=== PATIENT | female | born 1940 | race Caucasian/White ===

== ENCOUNTER → 2018-06-23 | Outpatient (CLI) | payer OTHER ==
[~2018-06-23] VITALS: Ht 162.6 cm; Wt 57.2 kg
[~2018-06-23] MED LIST: ALDACTONE25 MG PO; BIOTIN1 M1 PO; CHLORPHENIRAMINE; FISH OIL 1,001000 M2 PO; GLUCOSAMINE1000 MG PO; LASIX 20 MG TAB20 MG PO; LEVOTHYROXIN0.025 MG PO; ONE-A-DAY WOMENS PO; POTASSIUM99 M1 PO; SENOKOT-S1 TA2 GT; TUMS PO; TYLENOL325 MG PO; VALTREX1000 MG PO; VITAMIN D1000 UNI1 PO
--- NOTE | ~2018-06-23 | HPC ---
[facility] [place] [address] PAIN MANAGEMENT CONSULTATION Name: BASILIO DONG Room #: REG [facility].#: [id number] Admission: 06/23/18 Attend Phys: Aime Lloyd MD Discharge: Date of : 42 Report #: [id number] THIS REPORT FOR: //name// CC: Tracey Parham MD DATE OF SERVICE: 06/23/2018 CHIEF COMPLAINT: Cervicalgia. HISTORY OF PRESENT ILLNESS: The patient is here today with new complaints. She has pain in her neck. She has difficulty holding her head up. 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 I reviewed the plain films from Dr. Markham's office. He has recommended conservative therapy and she is undergoing physical therapy. She came today to get my thoughts and opinions. We discussed the changes that she has and I explained them in some detail on how they will affect her posture as she continues to hold her neck in a position of most comfort. Physical therapy may help in helping her with some alignment that may allow her to hold her head more upright, but it is likely based upon the plain film x-rays that she will have some restriction in neck extension. She has some mild disk difficulty with rotational movements as well, consistent with osteoarthritis of the higher cervical facet joints. Overall, the intensity of the pain is not severe. She scores it as a 1. She is here today mostly just to get a second opinion and explanation of her condition. I reviewed her PQRS. 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 She is fit and lean with a BMI of 21.6. SOCIAL HISTORY: She denies use of tobacco or alcohol. She does not take opioid medication nor does she desire it. She is under treatment for hypertension. MEDICATIONS: All medications are reviewed and reconciled from the electronic medical record. They are provided for her by Dr. Shai Parham, her primary care physician. She complained of lightheadedness. This is not exactly a dizziness, but at times when she is walking, she feels unsteady as though she may fall. She has been using a chair for balance at home, but rarely uses a walking device. We discussed the possibility of a cane. Almost everywhere she goes, she goes with her sister and her sister help support each other. She is a bit concerned that if she falls, she may pull her sister to the ground! She has no evidence of [address] [address] PAIN MANAGEMENT CONSULTATION Name: BASILIO DONG Room #: REG [facility]#: [id number] Admission: 06/23/18 Attend Phys: Aime Lloyd MD Discharge: Date of : 42 Report #: [id number] orthostasis. We have reviewed her medications and I see no obvious source there for this lightheadedness. PHYSICAL EXAMINATION: GENERAL: She is pleasant, alert and oriented. VITAL SIGNS: Height of 5 feet, 4. Weight of 126 pounds, BMI 21.6. Blood pressure 148/77, heart rate 89, respirations 16. EXTREMITIES: She moves easily from sitting to standing position. She ambulates without difficulty with short measured steps. She does look as though she may be a bit unsteady and I would consider her a fall risk. Examination of the neck reveals pain and neck extension where there is some restrictions. She also holds her chin forward and some extension, also a likely position of comfort. Rotational movements are limited by about 25%. Lateral tilt reproduced also in a similar degree 25-50%. Localized tenderness throughout the neck. IMPRESSION: Cervicalgia related to spondylosis. RECOMMENDATIONS: Long talk today about the use of Tylenol, nonsteroidal anti-inflammatory drugs, risks and benefits. She might be a candidate for some injections at some point in time, but I think that would be the most aggressive thing I would do. Follow up as needed. By: [id number] Aime Lloyd MD /nt
[2018-06-23 14:42] VITALS: BP 148/77
== END ==
LOC: PAIN 07:40
DX: M54.2 Cervicalgia (principal); M47.892 Other spondylosis, cervical region

== ENCOUNTER → 2018-09-19 | Outpatient (CLI) | payer OTHER | LOC: ULTRA 10:25 | DX: I83.92 Asymptomatic varicose veins of left lower extremity (principal) ==

== ENCOUNTER 2019-09-13 15:27 | Emergency (ER) | payer OTHER ==
[~2019-09-13] VITALS: Ht 160 cm; Wt 54.4 kg
[~2019-09-13 15:27] MED LIST changes: -LEVOTHYROXIN0.025 MG PO; +SYNTHROID50 MCG PO
[2019-09-13] MEDS ORDERED: PEPCID AC20 MG PO (16:15)
[2019-09-13] MEDS ORDERED: NORVASC 2.5 MG2.5 M1 PO (16:16)
[2019-09-13] MEDS ORDERED: NORCO 5-325 TA1 EAC1 PO (17:38)
[2019-09-13] MEDS ORDERED: VOLTAREN GEL 1100 G1 TOP (17:38)
[2019-09-13 17:59] VITALS: BP 171/97
== END 2019-09-13 17:59 | disposition home or self-care (01) ==
LOC: ER 15:27
DX: M17.12 Unilateral primary osteoarthritis, left knee (principal); Z90.710 Acquired absence of both cervix and uterus; Z88.0 Allergy status to penicillin; Z88.1 Allergy status to other antibiotic agents; Z88.2 Allergy status to sulfonamides; Z88.8 Allergy status to other drugs, medicaments and biological substances

== ENCOUNTER → 2020-10-21 | Outpatient (CLI) | payer OTHER ==
[~2020-10-21] MED LIST changes: +NORCO 5-325 TA1 EAC1 PO; +NORVASC 2.5 MG2.5 M1 PO; +PEPCID AC20 MG PO; +VOLTAREN GEL 1100 G1 TOP
== END ==
LOC: RAD 15:25
PROVIDERS: ATTEND Internal Medicine
DX: I10 Essential (primary) hypertension (principal); M25.78 Osteophyte, vertebrae

== ENCOUNTER → 2020-10-21 | Outpatient (CLI) | payer OTHER | LOC: SJCVCIMAG 13:19 → SJCVC 13:19 | PROVIDERS: ATTEND Internal Medicine | DX: I08.3 Combined rheumatic disorders of mitral, aortic and tricuspid valves (principal); I27.20 Pulmonary hypertension, unspecified; I11.9 Hypertensive heart disease without heart failure; E78.5 Hyperlipidemia, unspecified; E03.9 Hypothyroidism, unspecified; M81.0 Age-related osteoporosis without current pathological fracture; Z88.8 Allergy status to other drugs, medicaments and biological substances; Z98.890 Other specified postprocedural states; Z86.79 Personal history of other diseases of the circulatory system; Z82.49 Family history of ischemic heart disease and other diseases of the circulatory system ==

== ENCOUNTER → 2021-07-19 | Outpatient (CLI) | payer OTHER | LOC: RAD 15:54 | PROVIDERS: ATTEND Internal Medicine | DX: M47.814 Spondylosis without myelopathy or radiculopathy, thoracic region (principal); M47.817 Spondylosis without myelopathy or radiculopathy, lumbosacral region; M54.89 Other dorsalgia ==